=== PATIENT | male | born 1965 | race Caucasian/White ===

== ENCOUNTER 2017-01-25 00:01 | Outpatient (RCR) | payer MEDICARE, MEDICAID, SELFPAY ==
[2016-01-26 10:51] VITALS: BP 127/81
[~2017-01-25 00:01] MED LIST: ATOR10TA84 PO; BENA10TA PO; BENA10TA3 PO; BENZ0.5T32 PO; BENZ2TAB58 PO; HALO10 PO; NACL1 PO; QUET200T PO; QUET400T PO; RISPC50 IM; TAMS0.4C32 PO; VITAD1000 PO; ZOLP10TA7 PO
== END 2017-02-23 | disposition home or self-care (01) ==
LOC: IOPBV 00:01
PROVIDERS: ATTEND Psychiatry & Neurology Psychiatry
DX: F20.0 Paranoid schizophrenia (principal); H55.00 Unspecified nystagmus; F17.210 Nicotine dependence, cigarettes, uncomplicated; F12.21 Cannabis dependence, in remission
CPT/HCPCS: 90832; 90853

== ENCOUNTER → 2017-09-02 | Outpatient (CLI) | payer MEDICARE, MEDICAID ==
[~2017-09-02] MED LIST changes: -BENA10TA PO; -BENZ0.5T32 PO; -BENZ2TAB58 PO; -QUET400T PO; -RISPC50 IM
== END | disposition home or self-care (01) ==
LOC: LABMN 11:00
PROVIDERS: ATTEND Psychiatry & Neurology Psychiatry
DX: F20.9 Schizophrenia, unspecified (principal)

== ENCOUNTER 2019-06-24 13:50 | Inpatient (IN) | payer MEDICARE, OTHER ==
[~2019-06-24] VITALS: Ht 172.7 cm; Wt 65.8 kg
[~2019-06-24 13:50] MED LIST changes: -BENA10TA3 PO; +BENA10TA77 PO; +CHOL100018 PO; +TAMS-13 PO; -TAMS0.4C32 PO; -VITAD1000 PO
[2019-06-24] MEDS ORDERED: DIVA-78 PO (14:08)
[2019-06-24] MEDS ORDERED: MULT1CAP32 PO (14:08)
[2019-06-24] MEDS ORDERED: NACL1 PO (14:08)
[2019-06-24] MEDS ORDERED: QUET100T PO (14:08)
[2019-06-24] MEDS ORDERED: TRAZ-257 PO (14:08)
[2019-06-24] MEDS ORDERED: FOLI1 PO (14:08)
[2019-06-24] MEDS ORDERED: LORA10TA7 PO (14:08)
[2019-06-24] MEDS ORDERED: 0.9% SODIUM CHLORIDE 10 ML SYRINGE IVP PRN (15:15)
[2019-06-24 15:52] LABS: HEMATOCRIT 38.1 % (41-53); HEMOGLOBIN 12.9 g/dL (13.5-17.5); MEAN CORPUSCULAR HEMOGLOBIN 33.6 pg (26.0-34.0); MEAN CORPUSCULAR HGB CONC 33.9 G/dL (31.0-37.0); MEAN CORPUSCULAR VOLUME 99 fL (80-100); PLATELET COUNT (AUTO) 326 K/uL (150-450); RED BLOOD CELL COUNT(AUTO) 3.85 MIL/uL (4.50-5.90); RED CELL DISTRIBUTION WIDTH 13.9 % (11.5-14.5)
[2019-06-24 16:06] LABS: ANION GAP 4 mmol/L (8-16); CALCIUM, TOTAL 7.2 mg/dL (8.8-10.5); CARBON DIOXIDE 29 mmol/L (22-29); CHLORIDE 100 mmol/L (98-107); CREATININE 0.48 mg/dL (0.60-1.30); GLOMERULAR FILTR. RATE CALC > 60 mL/min (>60); GLUCOSE,RANDOM 128 mg/dL (70-110); POTASSIUM 3.4 mmol/L (3.5-5.1); SODIUM SERUM 133 mmol/L (136-145); UREA NITROGEN, BLOOD 5 mg/dL (7-18)
[2019-06-24 16:13] LABS: LACTIC ACID 0.9 mmol/L (0.4-2.0)
[2019-06-24 16:16] LABS: B-TYPE NATRIURETIC PEPTIDE 74 pg/mL (0-100)
[2019-06-24 16:17] LABS: INR 1.1 (0.9-1.1); PROTHROMBIN TIME 11.5 SEC (9.4-11.6)
[2019-06-24 16:22] LABS: FREE T4 (FREE THYROXINE) 0.96 ng/dL (0.76-1.46); THYROID STIMULATING HORMONE 1.92 uIU/mL (0.36-3.74); VALPROIC ACID 91 mcg/mL (50-100)
[2019-06-24 16:31] LABS: ALANINE AMINOTRANSFERASE 15 U/L (12-78); ALKALINE PHOSPHATASE 55 U/L (46-116); ASPARTATE AMINOTRANSFERASE 19 U/L (15-37); BAND NEUTROPHILS % (MANUAL) 8 % (0-5); BILIRUBIN,TOTAL 0.2 mg/dL (0.1-1.0); CREATINE KINASE, TOTAL ONLY 169 U/L (39-308); LYMPHOCYTES % (MANUAL) 37 % (22-44); MONOCYTES % (MANUAL) 13 % (2-9); SEGMENTED NEUTROPHILS % 42 % (40-70); TOTAL PROTEIN, SERUM 5.4 g/dL (6.4-8.2)
[2019-06-24] MEDS ORDERED: AZITHROMYCIN 500 MG/NS 250 ML IV ONE (16:45)
[2019-06-24] MEDS: CefTRIAXone SODIUM 2 GM in DEXTROSE 5%-WATER 50 ML IV ONE ×2 (17:00→21:20)
[2019-06-24] MEDS ORDERED: SODIUM CHLORIDE 0.9% 1,000 ML IV ONE (18:00)
[2019-06-24] MEDS ORDERED: ACETAMINOPHEN 325 MG TABLET PO PRN ×2 (18:15)
[2019-06-24] MEDS ORDERED: LACTULOSE 20 GM/30 ML SOLUTION UDCUP PO ONE (18:15)
[2019-06-24] MEDS ORDERED: ONDANSETRON HCL 4 MG/2 ML VIAL IVP PRN (18:15)
[2019-06-24 18:48] LABS: APPEARANCE,URINE CLEAR (CLEAR); BILIRUBIN,URINE NEGATIVE (NEGATIVE); GLUCOSE, URINE (UA) NEGATIVE (NEGATIVE); KETONES,URINE NEGATIVE (NEGATIVE); LEUKOCYTE ESTERASE ,URINE MODERATE (NEGATIVE); NITRATE,URINE NEGATIVE (NEGATIVE); OCCULT BLOOD,URINE TRACE (NEGATIVE); PH,URINE 7.5 (5.0-8.0); PROTEIN,URINE NEGATIVE (NEGATIVE); UROBILINOGEN,URINE 0.2 mg/dL (<=1.0)
[2019-06-24 18:50] LABS: AMPHET/METH SCREEN,URINE NEGATIVE (NEGATIVE); BARBITURATE SCREEN, URINE NEGATIVE (NEGATIVE); BENZODIAZEPINES SCREEN,URINE NEGATIVE (NEGATIVE); CANNABINOID SCREEN,URINE NEGATIVE (NEGATIVE); COCAINE SCREEN,URINE NEGATIVE (NEGATIVE); METHADONE SCREEN, URINE NEGATIVE (NEGATIVE); OPIATE SCREEN,URINE NEGATIVE (NEGATIVE); PHENCYCLIDINE SCREEN,URINE NEGATIVE (NEGATIVE)
[2019-06-24 19:08] LABS: BACTERIA,URINE Many /HPF (None Seen)
[2019-06-24 19:09] LABS: RBC,URINE 0-2 /HPF (0-2)
[2019-06-24 19:10] LABS: SQUAMOUS EPITHELIAL CELL,UR Rare /LPF (None Seen)
[2019-06-24] MEDS ORDERED: POTASSIUM CHLORIDE 10% 40 MEQ/30 ML LIQUID UDCUP PO ONE (20:15)
[2019-06-24 21:06] VITALS: BP 121/78
[2019-06-24] MEDS ORDERED: PNEUMOCOCCAL VACCINE POLYVALENT 0.5 ML VIAL [PPSV23] IM ONE (22:30)
[2019-06-24] MEDS ORDERED: INFLUENZA VIRUS VACCINE QVS 2019-20 (3YR+)/PF 60 MCG/0.5 ML SYRINGE IM ONE (22:30)
[2019-06-24 23:42] VITALS: BP 101/71
[2019-06-24] MEDS: LACTULOSE 20 GM/30 ML SOLUTION UDCUP PO SCH (23:55)
[2019-06-24] MEDS: HEPARIN SODIUM,PORCINE 5,000 UNITS/ML VIAL SQ SCH (23:56)
[2019-06-25 03:56] VITALS: BP 102/78
[2019-06-25 07:45] VITALS: BP 122/75
[2019-06-25] MEDS: HEPARIN SODIUM,PORCINE 5,000 UNITS/ML VIAL SQ SCH ×2 (07:53→15:37)
[2019-06-25] MEDS: LACTULOSE 20 GM/30 ML SOLUTION UDCUP PO SCH ×3 (07:53→17:44)
[2019-06-25] MEDS ORDERED: FAMOTIDINE 20 MG TABLET PO SCH (09:00)
[2019-06-25] MEDS ORDERED: ONDANSETRON HCL 4 MG/2 ML VIAL IVP PRN (10:00)
[2019-06-25 11:15] VITALS: BP 144/89
[2019-06-25 11:31] LABS: HEMATOCRIT 40.5 % (41-53); HEMOGLOBIN 14.3 g/dL (13.5-17.5); MEAN CORPUSCULAR HEMOGLOBIN 34.9 pg (26.0-34.0); MEAN CORPUSCULAR HGB CONC 35.2 G/dL (31.0-37.0); MEAN CORPUSCULAR VOLUME 99 fL (80-100); PLATELET COUNT (AUTO) 412 K/uL (150-450); RED BLOOD CELL COUNT(AUTO) 4.09 MIL/uL (4.50-5.90)
[2019-06-25] MEDS: PANTOPRAZOLE SODIUM 40 MG DR TABLET PO SCH (11:41)
[2019-06-25] MEDS: RIFAXIMIN 550 MG TABLET PO SCH ×2 (11:41→20:45)
[2019-06-25 12:17] LABS: BAND NEUTROPHILS % (MANUAL) 1 % (0-5); LYMPHOCYTES % (MANUAL) 11 % (22-44); MONOCYTES % (MANUAL) 19 % (2-9); REACTIVE LYMPHOCYTES 5 % (0-0); SEGMENTED NEUTROPHILS % 64 % (40-70)
[2019-06-25] MEDS: CefTRIAXone 1 GM/DEXTROSE 50 ML IV SCH (13:00)
[2019-06-25 13:24] LABS: ANION GAP 6 mmol/L (8-16); CALCIUM, TOTAL 9.6 mg/dL (8.8-10.5); CARBON DIOXIDE 31 mmol/L (22-29); CHLORIDE 93 mmol/L (98-107); CREATININE 0.73 mg/dL (0.60-1.30); GLOMERULAR FILTR. RATE CALC > 60 mL/min (>60); GLUCOSE,RANDOM 106 mg/dL (70-110); POTASSIUM 4.7 mmol/L (3.5-5.1); SODIUM SERUM 130 mmol/L (136-145); UREA NITROGEN, BLOOD 7 mg/dL (7-18)
[2019-06-25] MEDS: ALBUTEROL SULFATE 2.5 MG/0.5 ML NEB SOLUTION NEB SCH ×2 (14:00→20:00)
[2019-06-25] MEDS: IPRATROPIUM BROMIDE 0.5 MG/2.5 ML NEB SOLUTION NEB SCH ×2 (14:00→20:00)
[2019-06-25] MEDS: DOXYCYCLINE HYCLATE 100 MG in DEXTROSE 5%-WATER 100 ML IV SCH (14:00)
[2019-06-25 15:01] VITALS: BP 153/75
[2019-06-25 16:46] LABS: ANION GAP 0 mmol/L (8-16); CARBON DIOXIDE 34 mmol/L (22-29); CHLORIDE 87 mmol/L (98-107); GLUCOSE,RANDOM 115 mg/dL (70-110); POTASSIUM 4.7 mmol/L (3.5-5.1); UREA NITROGEN, BLOOD 11 mg/dL (7-18)
[2019-06-25 16:47] LABS: GLOMERULAR FILTR. RATE CALC > 60 mL/min (>60)
[2019-06-25 16:51] LABS: SODIUM SERUM 121 mmol/L (136-145)
[2019-06-25] MEDS: QUEtiapine FUMARATE 100 MG TABLET PO SCH ×2 (17:00→20:46)
[2019-06-25] MEDS: DIVALPROEX SODIUM 500 MG DR TABLET PO SCH ×2 (17:00→20:45)
[2019-06-25] MEDS: IPRATROPIUM BROMIDE 0.5 MG/2.5 ML NEB SOLUTION NEB PRN (18:05)
[2019-06-25] MEDS: ALBUTEROL SULFATE 2.5 MG/0.5 ML NEB SOLUTION NEB PRN (18:05)
[2019-06-25 20:20] VITALS: BP 94/51
[2019-06-25] MEDS: SODIUM CHLORIDE 1 GM TABLET PO SCH (20:45)
[2019-06-25] MEDS: TraZODone HCL 100 MG TABLET PO SCH (21:00)
[2019-06-26] VITALS (7 sets, daily range): BP systolic 99–126; BP diastolic 53–85
[2019-06-26] MEDS: LACTULOSE 20 GM/30 ML SOLUTION UDCUP PO SCH ×5 (00:01→17:15)
[2019-06-26] MEDS: HEPARIN SODIUM,PORCINE 5,000 UNITS/ML VIAL SQ SCH ×3 (00:02→17:16)
[2019-06-26] MEDS: IPRATROPIUM BROMIDE 0.5 MG/2.5 ML NEB SOLUTION NEB PRN (00:23)
[2019-06-26] MEDS: ALBUTEROL SULFATE 2.5 MG/0.5 ML NEB SOLUTION NEB PRN (00:23)
[2019-06-26 01:30] LABS: ANION GAP 1 mmol/L (8-16); CALCIUM, TOTAL 8.3 mg/dL (8.8-10.5); CARBON DIOXIDE 33 mmol/L (22-29); CHLORIDE 90 mmol/L (98-107); CREATININE 0.68 mg/dL (0.60-1.30); GLOMERULAR FILTR. RATE CALC > 60 mL/min (>60); GLUCOSE,RANDOM 104 mg/dL (70-110); POTASSIUM 3.9 mmol/L (3.5-5.1); UREA NITROGEN, BLOOD 7 mg/dL (7-18)
[2019-06-26 01:34] LABS: SODIUM SERUM 124 mmol/L (136-145)
[2019-06-26] MEDS: IPRATROPIUM BROMIDE 0.5 MG/2.5 ML NEB SOLUTION NEB SCH ×4 (02:30→20:35)
[2019-06-26] MEDS: ALBUTEROL SULFATE 2.5 MG/0.5 ML NEB SOLUTION NEB SCH ×4 (02:30→20:35)
[2019-06-26] MEDS: DOXYCYCLINE HYCLATE 100 MG in DEXTROSE 5%-WATER 100 ML IV SCH ×2 (02:33→14:21)
[2019-06-26 08:09] LABS: BASOPHILS % (AUTO) 0.5 % (0.0-2.0); HEMATOCRIT 33.3 % (41-53); HEMOGLOBIN 11.9 g/dL (13.5-17.5); LYMPHOCYTES # (AUTO) 1.5 K/uL (1.0-4.8); LYMPHOCYTES % (AUTO) 20.9 % (22.0-44.0); MEAN CORPUSCULAR HEMOGLOBIN 35.1 pg (26.0-34.0); MEAN CORPUSCULAR HGB CONC 35.6 G/dL (31.0-37.0); MEAN CORPUSCULAR VOLUME 99 fL (80-100); MONOCYTES % (AUTO) 27.7 % (2.0-9.0); NEUTROPHILS # (AUTO) 3.6 K/uL (1.8-7.7); NEUTROPHILS % (AUTO) 49.9 % (40.0-70.0); PLATELET COUNT (AUTO) 318 K/uL (150-450); RED BLOOD CELL COUNT(AUTO) 3.38 MIL/uL (4.50-5.90)
[2019-06-26 08:22] LABS: HEMOGLOBIN A1C 5.6 % (4.5-6.2)
[2019-06-26 09:13] LABS: ANION GAP 2 mmol/L (8-16); CALCIUM, TOTAL 8.3 mg/dL (8.8-10.5); CARBON DIOXIDE 32 mmol/L (22-29); CHLORIDE 91 mmol/L (98-107); CREATININE 0.55 mg/dL (0.60-1.30); GLOMERULAR FILTR. RATE CALC > 60 mL/min (>60); GLUCOSE,RANDOM 86 mg/dL (70-110); POTASSIUM 3.6 mmol/L (3.5-5.1); SODIUM SERUM 125 mmol/L (136-145); UREA NITROGEN, BLOOD 6 mg/dL (7-18)
[2019-06-26 09:14] LABS: CHOL/HDL RATIO 1.9 (4.2-7.3); CHOLESTEROL 76 mg/dL (131-200); CREATINE KINASE, TOTAL ONLY 161 U/L (39-308); FREE T4 (FREE THYROXINE) 1.06 ng/dL (0.76-1.46); HDL CHOLESTEROL 41 mg/dL (40-60); LDL CHOL (CALC.) 28 mg/dL (0-130); THYROID STIMULATING HORMONE 2.49 uIU/mL (0.36-3.74); TRIGLYCERIDES 34 mg/dL (15-150)
[2019-06-26] MEDS: FOLIC ACID 1 MG TABLET PO SCH (09:36)
[2019-06-26] MEDS: PANTOPRAZOLE SODIUM 40 MG DR TABLET PO SCH (09:36)
[2019-06-26] MEDS: MULTIVITAMINS, THERAPEUTIC TABLET PO SCH (09:36)
[2019-06-26] MEDS: LORATADINE 10 MG TABLET PO SCH (09:36)
[2019-06-26] MEDS: RIFAXIMIN 550 MG TABLET PO SCH ×2 (09:36→22:22)
[2019-06-26] MEDS: QUEtiapine FUMARATE 100 MG TABLET PO SCH ×3 (09:36→22:22)
[2019-06-26] MEDS: DIVALPROEX SODIUM 500 MG DR TABLET PO SCH ×3 (09:36→22:22)
[2019-06-26] MEDS: SODIUM CHLORIDE 1 GM TABLET PO SCH ×2 (09:36→22:22)
[2019-06-26] MEDS: CefTRIAXone 1 GM/DEXTROSE 50 ML IV SCH (12:24)
[2019-06-26 15:06] LABS: ANION GAP 5 mmol/L (8-16); CALCIUM, TOTAL 8.7 mg/dL (8.8-10.5); CARBON DIOXIDE 33 mmol/L (22-29); CHLORIDE 91 mmol/L (98-107); CREATININE 0.76 mg/dL (0.60-1.30); GLOMERULAR FILTR. RATE CALC > 60 mL/min (>60); GLUCOSE,RANDOM 114 mg/dL (70-110); POTASSIUM 4.6 mmol/L (3.5-5.1); SODIUM SERUM 129 mmol/L (136-145); UREA NITROGEN, BLOOD 7 mg/dL (7-18)
[2019-06-26 15:54] LABS: CREATININE,URINE RANDOM 36.9 mg/dL (30.0-125.0)
[2019-06-26] MEDS ORDERED: TraZODone HCL 50 MG TABLET PO SCH (21:00)
[2019-06-26] MEDS: TraZODone HCL 100 MG TABLET PO SCH (22:22)
[2019-06-26 23:46] LABS: ANION GAP 2 mmol/L (8-16); CALCIUM, TOTAL 8.6 mg/dL (8.8-10.5); CARBON DIOXIDE 35 mmol/L (22-29); CHLORIDE 96 mmol/L (98-107); CREATININE 0.62 mg/dL (0.60-1.30); GLOMERULAR FILTR. RATE CALC > 60 mL/min (>60); GLUCOSE,RANDOM 113 mg/dL (70-110); POTASSIUM 4.6 mmol/L (3.5-5.1); SODIUM SERUM 133 mmol/L (136-145); UREA NITROGEN, BLOOD 6 mg/dL (7-18)
[2019-06-27] MEDS: DOXYCYCLINE HYCLATE 100 MG in DEXTROSE 5%-WATER 100 ML IV SCH ×2 (01:12→13:01)
[2019-06-27] MEDS: HEPARIN SODIUM,PORCINE 5,000 UNITS/ML VIAL SQ SCH ×3 (01:12→15:57)
[2019-06-27] MEDS: ALBUTEROL SULFATE 2.5 MG/0.5 ML NEB SOLUTION NEB SCH ×4 (02:49→21:13)
[2019-06-27] MEDS: IPRATROPIUM BROMIDE 0.5 MG/2.5 ML NEB SOLUTION NEB SCH ×4 (02:49→21:13)
[2019-06-27 05:35] VITALS: BP 106/60
[2019-06-27 07:24] VITALS: BP 110/64
[2019-06-27 07:32] LABS: HEMATOCRIT 36.2 % (41-53); HEMOGLOBIN 12.6 g/dL (13.5-17.5); MEAN CORPUSCULAR HEMOGLOBIN 34.2 pg (26.0-34.0); MEAN CORPUSCULAR HGB CONC 34.8 G/dL (31.0-37.0); MEAN CORPUSCULAR VOLUME 99 fL (80-100); PLATELET COUNT (AUTO) 343 K/uL (150-450); RED BLOOD CELL COUNT(AUTO) 3.68 MIL/uL (4.50-5.90); RED CELL DISTRIBUTION WIDTH 14.3 % (11.5-14.5)
[2019-06-27 07:57] LABS: ANION GAP 0 mmol/L (8-16); CALCIUM, TOTAL 8.7 mg/dL (8.8-10.5); CARBON DIOXIDE 37 mmol/L (22-29); CHLORIDE 96 mmol/L (98-107); CREATININE 0.66 mg/dL (0.60-1.30); GLOMERULAR FILTR. RATE CALC > 60 mL/min (>60); GLUCOSE,RANDOM 81 mg/dL (70-110); PHOSPHORUS 3.4 mg/dL (2.5-4.9); POTASSIUM 4.1 mmol/L (3.5-5.1); SODIUM SERUM 133 mmol/L (136-145); THYROID STIMULATING HORMONE 3.98 uIU/mL (0.36-3.74); UREA NITROGEN, BLOOD 4 mg/dL (7-18)
[2019-06-27] MEDS: DIVALPROEX SODIUM 500 MG DR TABLET PO SCH ×3 (08:05→20:26)
[2019-06-27] MEDS: QUEtiapine FUMARATE 100 MG TABLET PO SCH ×3 (08:05→20:27)
[2019-06-27] MEDS: PANTOPRAZOLE SODIUM 40 MG DR TABLET PO SCH (08:05)
[2019-06-27] MEDS: SODIUM CHLORIDE 1 GM TABLET PO SCH ×3 (08:05→18:20)
[2019-06-27] MEDS: LORATADINE 10 MG TABLET PO SCH (08:05)
[2019-06-27] MEDS: RIFAXIMIN 550 MG TABLET PO SCH ×2 (08:05→20:27)
[2019-06-27] MEDS: MULTIVITAMINS, THERAPEUTIC TABLET PO SCH (08:05)
[2019-06-27] MEDS: FOLIC ACID 1 MG TABLET PO SCH (08:06)
[2019-06-27 10:15] LABS: BAND NEUTROPHILS % (MANUAL) 4 % (0-5); EOSINOPHILS % (MANUAL) 1 % (1-6); LYMPHOCYTES % (MANUAL) 28 % (22-44); MONOCYTES % (MANUAL) 21 % (2-9); SEGMENTED NEUTROPHILS % 46 % (40-70)
[2019-06-27 11:40] VITALS: BP 108/68
[2019-06-27] MEDS: LACTULOSE 20 GM/30 ML SOLUTION UDCUP PO SCH ×3 (12:00→18:00)
[2019-06-27] MEDS: CefTRIAXone 1 GM/DEXTROSE 50 ML IV SCH (12:20)
[2019-06-27 15:27] VITALS: BP 104/72
[2019-06-27 16:09] LABS: ANION GAP 1 mmol/L (8-16); CALCIUM, TOTAL 8.8 mg/dL (8.8-10.5); CARBON DIOXIDE 37 mmol/L (22-29); CHLORIDE 95 mmol/L (98-107); CREATININE 0.52 mg/dL (0.60-1.30); GLOMERULAR FILTR. RATE CALC > 60 mL/min (>60); GLUCOSE,RANDOM 84 mg/dL (70-110); POTASSIUM 4.8 mmol/L (3.5-5.1); SODIUM SERUM 133 mmol/L (136-145); UREA NITROGEN, BLOOD 6 mg/dL (7-18)
[2019-06-27 20:00] VITALS: BP 122/82
[2019-06-27] MEDS: TraZODone HCL 100 MG TABLET PO SCH (20:27)
[2019-06-28] VITALS: BP 118/78
[2019-06-28] MEDS: DOXYCYCLINE HYCLATE 100 MG in DEXTROSE 5%-WATER 100 ML IV SCH ×2 (01:11→13:32)
[2019-06-28] MEDS: SODIUM CHLORIDE 1 GM TABLET PO SCH ×3 (01:11→11:28)
[2019-06-28] MEDS: HEPARIN SODIUM,PORCINE 5,000 UNITS/ML VIAL SQ SCH ×2 (01:12→08:28)
[2019-06-28] MEDS: ALBUTEROL SULFATE 2.5 MG/0.5 ML NEB SOLUTION NEB SCH ×2 (02:00→08:00)
[2019-06-28] MEDS: IPRATROPIUM BROMIDE 0.5 MG/2.5 ML NEB SOLUTION NEB SCH ×2 (02:00→08:00)
[2019-06-28 04:04] VITALS: BP 116/84
[2019-06-28] MEDS: LACTULOSE 20 GM/30 ML SOLUTION UDCUP PO SCH ×3 (05:04→11:28)
[2019-06-28 07:57] LABS: ANION GAP 1 mmol/L (8-16); CALCIUM, TOTAL 8.4 mg/dL (8.8-10.5); CARBON DIOXIDE 35 mmol/L (22-29); CHLORIDE 97 mmol/L (98-107); CREATININE 0.62 mg/dL (0.60-1.30); GLOMERULAR FILTR. RATE CALC > 60 mL/min (>60); GLUCOSE,RANDOM 82 mg/dL (70-110); POTASSIUM 4.7 mmol/L (3.5-5.1); SODIUM SERUM 133 mmol/L (136-145); UREA NITROGEN, BLOOD 6 mg/dL (7-18)
[2019-06-28] MEDS: RIFAXIMIN 550 MG TABLET PO SCH (08:27)
[2019-06-28] MEDS: PANTOPRAZOLE SODIUM 40 MG DR TABLET PO SCH (08:27)
[2019-06-28] MEDS: MULTIVITAMINS, THERAPEUTIC TABLET PO SCH (08:27)
[2019-06-28] MEDS: FOLIC ACID 1 MG TABLET PO SCH (08:27)
[2019-06-28] MEDS: LORATADINE 10 MG TABLET PO SCH (08:27)
[2019-06-28] MEDS: QUEtiapine FUMARATE 100 MG TABLET PO SCH (08:27)
[2019-06-28] MEDS: DIVALPROEX SODIUM 500 MG DR TABLET PO SCH (08:28)
[2019-06-28 08:54] VITALS: BP 128/88
[2019-06-28] MEDS ORDERED: QUET100T33 PO (10:50)
[2019-06-28] MEDS ORDERED: NACL1 PO (10:50)
[2019-06-28] MEDS ORDERED: RIFAX550 PO (10:50)
[2019-06-28] MEDS ORDERED: LACT30L PO (10:50)
[2019-06-28] MEDS ORDERED: CEPH-582 PO (10:51)
[2019-06-28] MEDS: CefTRIAXone 1 GM/DEXTROSE 50 ML IV SCH (12:47)
== END 2019-06-28 14:35 | disposition home or self-care (01) | DRG 441 ==
LOC: EMS 13:52 → 6N 18:39
PROVIDERS: ADMIT Internal Medicine; ATTEND Internal Medicine
DX: K72.90 Hepatic failure, unspecified without coma (principal); J18.9 Pneumonia, unspecified organism; E43 Unspecified severe protein-calorie malnutrition; N39.0 Urinary tract infection, site not specified; E87.1 Hypo-osmolality and hyponatremia; E87.3 Alkalosis; J44.0 Chronic obstructive pulmonary disease with (acute) lower respiratory infection; J96.10 Chronic respiratory failure, unspecified whether with hypoxia or hypercapnia; D64.9 Anemia, unspecified; F20.9 Schizophrenia, unspecified; I10 Essential (primary) hypertension; E83.42 Hypomagnesemia; E87.6 Hypokalemia; E88.09 Other disorders of plasma-protein metabolism, not elsewhere classified; K76.0 Fatty (change of) liver, not elsewhere classified; E87.8 Other disorders of electrolyte and fluid balance, not elsewhere classified; Z87.891 Personal history of nicotine dependence; B96.20 Unspecified Escherichia coli [E. coli] as the cause of diseases classified elsewhere
CPT/HCPCS: 70450; 76705; 80074; 82533; 82570; 83036; 83605; 83735; 83930; 83935; 84100; 84133; 84145; 84300; 84439; 84443; 86592; 87040; 87086; 93005; 94640; G0480; J0456; J0696; J1644; J3490; J7030; J7060

== ENCOUNTER → 2020-05-12 | Outpatient (CLI) | payer MEDICARE, OTHER ==
[~2020-05-12] MED LIST changes: -ATOR10TA84 PO; -BENA10TA77 PO; +CEPH-582 PO; -CHOL100018 PO; +DIVA-112 PO; +FOLI-130 PO; -HALO10 PO; +LACT30L PO; +LORA10TA7 PO; +MULT1CAP32 PO; +QUET100T33 PO; -QUET200T PO; +RIFAX550 PO; -TAMS-13 PO; +TRAZ-257 PO; -ZOLP10TA7 PO
[2020-05-12 12:58] LABS: ALANINE AMINOTRANSFERASE 24 U/L (12-78); ALBUMIN 3.3 g/dL (3.4-5.0); ALKALINE PHOSPHATASE 78 U/L (46-116); ANION GAP 7 mmol/L (8-16); ASPARTATE AMINOTRANSFERASE 28 U/L (15-37); BILIRUBIN,TOTAL 0.5 mg/dL (0.1-1.0); CALCIUM, TOTAL 9.2 mg/dL (8.8-10.5); CARBON DIOXIDE 30 mmol/L (22-29); CHLORIDE 95 mmol/L (98-107); CREATININE 0.68 mg/dL (0.60-1.30); GLOMERULAR FILTR. RATE CALC > 60 mL/min (>60); GLUCOSE,RANDOM 82 mg/dL (70-110); POTASSIUM 4.5 mmol/L (3.5-5.1); SODIUM SERUM 132 mmol/L (136-145); TOTAL PROTEIN, SERUM 7.8 g/dL (6.4-8.2); UREA NITROGEN, BLOOD 5 mg/dL (7-18)
== END | disposition home or self-care (01) ==
LOC: LABPV 09:59
PROVIDERS: ATTEND Internal Medicine Geriatric Medicine
DX: E87.1 Hypo-osmolality and hyponatremia (principal)

== ENCOUNTER → 2021-02-14 | Outpatient (CLI) | payer MEDICARE, OTHER ==
[~2021-02-14] MED LIST changes: -QUET100T33 PO; +QUET100T34 PO
== END | disposition home or self-care (01) ==
LOC: RADPV 14:46
PROVIDERS: ATTEND Internal Medicine Cardiovascular Disease
DX: I50.1 Left ventricular failure, unspecified (principal)
CPT/HCPCS: 93306